=== PATIENT | male | born 2000 | race Two or more races ===

== ENCOUNTER 2024-09-03 21:51 | Emergency (ER) | payer OTHER ==
[~2024-09-03] VITALS: Ht 167.6 cm; Wt 68.0 kg
[2024-09-03 21:58] VITALS: BP 115/80; TEMP 98.2; O2SAT 98
[2024-09-03] MEDS ORDERED: CIPROFLOXACIN HCL 250 MG TABLET PO ONE (22:30)
[2024-09-04] MEDS ORDERED: AZITHROMYCIN 250 MG TABLET PO ONE
[2024-09-04] MEDS ORDERED: CIPROFLOXACIN HCL 500 MG TABLET ONE (00:57)
[2024-09-04] MEDS ORDERED: AZITHROMYCIN 250 MG TABLET ONE (00:58)
== END 2024-09-04 01:48 | disposition home or self-care (01) ==
LOC: ER 21:55
DX: Z13.89 Encounter for screening for other disorder (principal)